=== PATIENT | male | born 1945 | race Caucasian/White ===

== ENCOUNTER 2017-12-19 12:12 | Emergency (ER) | payer OTHER ==
[~2017-12-19] VITALS: Ht 180.3 cm; Wt 85.7 kg
[~2017-12-19 12:12] MED LIST: ADDERALL 30 MG30 MG PO; ASPIRIN EC81 M1 PO; BENZONATATE200 MG PO; CARISOPRODOL 3350 MG PO; CLONAZEPAM 0.50.5 M1 PO; COMPAZINE10 MG PO; DEXILANT60 MG PO; LEXAPRO 10 MG T10 M1 PO; PERCOCET 5-3251 EACH PO; PLAVIX 75 MG TA75 MG PO; TAMSULOSIN HCL0.4 M1 PO; VITAMIN D 5050000 I1 PO; ZOCOR 20 MG TAB20 M1 PO
[2017-12-19 12:19] VITALS: BP 159/85
[2017-12-19] MEDS ORDERED: FLOMAX0.4 MG PO (12:25)
[2017-12-19] MEDS ORDERED: CARAFATE 1 GM TA1 G1 PO (12:25)
[2017-12-19] MEDS ORDERED: TESSALON PERLE100 MG PO (12:26)
[2017-12-19] MEDS ORDERED: TRAZODONE HCL50 MG PO (12:27)
[2017-12-19] MEDS ORDERED: CYCLOBENZAPRINE5 MG PO (12:27)
[2017-12-19] MEDS ORDERED: ABILIFY 5 MG TAB5 MG PO (12:28)
[2017-12-19] MEDS ORDERED: PROTONIX40 M1 PO (12:28)
[2017-12-19] MEDS ORDERED: ONDANSETRON HCL4 M2 PO (12:29)
== END 2017-12-19 12:55 | disposition home or self-care (01) ==
LOC: M.ERS 12:12
DX: Z71.1 Person with feared health complaint in whom no diagnosis is made (principal); I25.10 Atherosclerotic heart disease of native coronary artery without angina pectoris; E78.5 Hyperlipidemia, unspecified; Z88.0 Allergy status to penicillin; Z88.8 Allergy status to other drugs, medicaments and biological substances; Z90.49 Acquired absence of other specified parts of digestive tract

== ENCOUNTER 2021-06-01 14:32 | Emergency (ER) | payer MEDICARE ==
[~2021-06-01] VITALS: Ht 180.3 cm; Wt 88.5 kg
[~2021-06-01 14:32] MED LIST changes: +ABILIFY 5 MG TAB5 MG PO; +CARAFATE 1 GM TA1 G1 PO; +CYCLOBENZAPRINE5 MG PO; +FLOMAX0.4 MG PO; +ONDANSETRON HCL4 M2 PO; +PROTONIX40 M1 PO; +TESSALON PERLE100 MG PO; +TRAZODONE HCL50 MG PO
[2021-06-01 15:15] LABS: ABSOLUTE BASOPHILS 0.1 thou/uL (0.0-0.2); ABSOLUTE EOSINOPHILS 0.1 thou/uL (0.0-0.7); ABSOLUTE LYMPHOCYTES 0.9 thou/uL (0.8-5.3); ABSOLUTE MONOCYTES 0.6 thou/uL (0.0-1.2); ABSOLUTE NEUTROPHILS 7.4 thou/uL (1.6-8.1); EOSINOPHILS 1.3 %; HEMATOCRIT 43.1 % (42.0-52.0); HEMOGLOBIN 14.6 gm/dL (14.0-18.0); LYMPHOCYTES 9.5 %; MCH 27.7 pg (26.0-34.0); MCHC 33.9 g/dL (28.0-37.0); MCV 81.5 fL (80.0-100.0); MONOCYTES 6.5 %; NUCLEATED RBCS 0 /100WBC; PLATELET COUNT* 168 thou/uL (150-400); POLYS 81.7 %; RBC 5.29 mil/uL (4.50-6.00); RDW-CV 14.1 % (10.5-14.5)
[2021-06-01 15:25] LABS: CREATININE 1.4 mg/dL (0.6-1.3); POTASSIUM 3.7 mmol/L (3.5-5.1)
[2021-06-01 15:35] LABS: ALBUMIN 3.8 g/dL (3.4-5.0); TOTAL BILIRUBIN 0.9 mg/dL (<0.1-1.0); TOTAL PROTEIN 6.6 g/dL (6.4-8.2)
[2021-06-01] MEDS ORDERED: LASIX 40 MG TAB40 MG PO (16:23)
[2021-06-01] MEDS ORDERED: KLOR-CON M2020 MEQ PO (16:23)
[2021-06-01] MEDS ORDERED: PREDNISONE 20 M20 M1 PO (16:25)
[2021-06-01] MEDS ORDERED: LEVOFLOXACIN500 MG PO (16:25)
[2021-06-01 16:37] VITALS: BP 134/72
--- NOTE | 2021-06-01 16:45 | EKG ---
[place] [address] ELECTROCARDIOGRAM REPORT Name: ELLY GUADARRAMA Room: [place]#: [id number] Admission: 06/01/21 Attend Phys: Discharge: 06/01/21 Date of : 45 Date of Service: 06/01/21 1503 Report #: [id number] THIS REPORT FOR: //name// [facility] ED Test Date: 2021-06-01 Test Time: 15:03:57 Pat Name: ELLY GUADARRAMA Department: Room: Gender: Area Counselor: [facility] : 1945 Requested By: Carlos Elias Order Number: [id number] MD: Darrin Chacko Measurements Intervals [place] Rate: 105 P: 91 AR: 153 QRS: 74 QRSD: 141 T: -8 QT: 392 QTc: 519 Interpretive Statements Sinus tachycardia Multiple ventricular premature complexes Probable left atrial enlargement Right bundle branch block Compared to ECG 04/02/2013 13:30:05 Ventricular premature complex(es) now present Electronically Signed On 06-01-2021 16:45:26 CDT by Darrin Chacko [email or web address] <ELECTRONICALLY SIGNED> By: Darrin Chacko MD, FACC 06/01/21 1645 1503 1503 Darrin Chacko MD, [facility] /EPI
== END 2021-06-01 16:38 | disposition home or self-care (01) ==
LOC: M.ERS 14:32
PROVIDERS: Family Medicine
DX: J18.9 Pneumonia, unspecified organism (principal); I25.10 Atherosclerotic heart disease of native coronary artery without angina pectoris; E78.5 Hyperlipidemia, unspecified; Z98.61 Coronary angioplasty status; Z85.47 Personal history of malignant neoplasm of testis; Z90.49 Acquired absence of other specified parts of digestive tract; Z98.890 Other specified postprocedural states; Z79.899 Other long term (current) drug therapy; Z88.8 Allergy status to other drugs, medicaments and biological substances; Z88.0 Allergy status to penicillin; Z88.6 Allergy status to analgesic agent